=== PATIENT | female | born 1950 | race Caucasian/White ===

== ENCOUNTER 2025-01-22 11:43 | Emergency (ER) | payer MEDICARE, BC, SELFPAY ==
[2025-01-22 11:45] VITALS: BP 150/109
--- NOTE | 2025-01-22 12:55 | ED.GENMED ---
History of Present Illness
General
Chief Complaint: Swelling
Source: patient and significant other
Exam Limitations: none
Time Seen by Provider: 01/22/25 12:41
Nursing documentation reviewed up to this point in time: agreed with
History of Present Illness
History of Present Illness:
Note:
CHIEF COMPLAINT(S)
Facial and throat swelling, difficulty breathing, and hives after discontinuation of prednisone.
HISTORY OF PRESENT ILLNESS
The patient is a 74-year-old female with a history of rheumatoid arthritis, presenting to the emergency department with facial and throat swelling, difficulty breathing, and hives. These symptoms began after she discontinued prednisone, which she
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 The patient described the sensation as feeling like 'somebodys choking me.' The hives have persisted for about a week and were described as prickly heat. She
reported being on prednisone, last taking it a couple of days ago, and has been on methotrexate in the past, which was discontinued approximately six to seven weeks ago. The patient expressed fatigue and frustration with her current symptoms.
PHYSICAL EXAM
- General: No acute distress, afebrile
- Dermatological: Patchy hives observed on the trunk
- Ear, Nose, and Throat: No uvular swelling, no stridor
- Cardiovascular: Normal S1 and S2 heart sounds, no S3 or S4
- Pulmonary: Normal breath sounds bilaterally
- Abdominal: Soft, non-tender
PLAN
1. Place an intravenous line and obtain laboratory tests.
2. Administer intravenous Benadryl and Pepcid.
3. Monitor the patient�s response to the treatment.
4. Consider IV steroids depending on patients response to initial treatment and check lab results.
DIFFERENTIAL DIAGNOSIS
The Differential Diagnosis includes, in no particular order and is not limited to:
1. Anaphylaxis
2. Angioedema
3. Urticaria secondary to drug withdrawal (prednisone or methotrexate)
4. Allergic reaction to an unknown allergen
5. Viral exanthem
6. Contact dermatitis
7. Mastocytosis
8. Idiopathic urticaria
9. Autoimmune-related hypersensitivity
10. Medication side effect or allergy
CARE-UPDATE
01/22/25 - 19:49
Patient reports minimal change in symptoms. A discussion with the emergency department pharmacist suggests her symptoms might be related to imiprimine, which she has been taking long-term and is known to cause hives. Despite the potential
connection, the patient declines to discontinue imiprimine or take steroids, specifically prednisone, which previously resolved her symptoms. She is advised to stop imiprimine and to follow up with her primary care doctor but opts to leave without
changes to her current regimen.
Disposition:
SUMMARY OF ENCOUNTER
The patient, a 74-year-old female with a history of rheumatoid arthritis, was seen in the emergency department due to facial and throat swelling, difficulty breathing, and hives after discontinuing prednisone. These symptoms were thought to be
related to a medication reaction, potentially linked to imiprimine, which the patient had been taking long-term. Intravenous Benadryl and famotidine were administered for symptomatic relief. Despite the possibility of a reaction to imiprimine, the
patient declined to discontinue it and also refused to take steroids such as prednisone, despite its previous efficacy.
DISPOSITION
Discharge
ASSESSMENT
The patients symptoms suggest a likely allergic reaction, possibly related to recent medication changes. The continuation of symptoms may be influenced by the persistent use of amitriptyline and the discontinuation of prednisone.
EMERGENCY TREATMENTS ADMINISTERED
Intravenous diphenhydramine and famotidine.
PLAN
The patient was advised to discontinue imiprimine and to follow up with her primary care physician for further evaluation and management of her symptoms. Ongoing monitoring of her symptoms was recommended, particularly in relation to any other
medications she might be taking.
PATIENT EDUCATION AND COUNSELING
The patient was advised about the potential link between her symptoms and amitriptyline, and the importance of consulting with her primary care doctor about her current medication regimen. The possibility of prednisone being reintroduced to manage
the allergic reaction was discussed, but the patient declined.
FOLLOW-UP INSTRUCTIONS
The patient is advised to follow up with her primary care doctor to reassess her medication regimen and manage her symptoms effectively.
MEDICATION RECONCILIATION
1. Diphenhydramine (administered intravenously)
2. Famotidine (administered intravenously)
3. Imiprimine (patient declined to discontinue despite advice)
MEDICAL DECISION MAKING
- Complexity of Data Reviewed: Chronic conditions affecting care include rheumatoid arthritis. Differential diagnosis includes anaphylaxis, angioedema, urticaria secondary to drug withdrawal, allergic reaction to an unknown allergen, viral exanthem,
contact dermatitis, mastocytosis, idiopathic urticaria, autoimmune-related hypersensitivity, and medication side effect or allergy.
- Data:
Category 1
No specific labs or imaging tests were conducted during this visit.
Category 3
Discussion of management with the emergency department pharmacist regarding the potential link between the patients symptoms and amitriptyline.
- Risk: Prescription drug management was discussed. Despite potential medication reactions, the patient was discharged with outpatient management advice.
DIAGNOSIS
- Medication-induced urticaria (ICD-10: L50.0)
- Adverse effect of imiprimine (ICD-10: T43.015A)
Phy Exam
Physical Exam
Physical Exam:
.
Scores
Heart Failure Risk
Heart Failure Risk Score: Not Applicable
Course
Orders/Labs/Results
Orders:
Orders
01/22/25 11:44
EKG [Electrocardiogram (*1)] Urgent
Reason for Study: Chest Pain
EKG- Treatment ONCE
01/22/25 12:56
IV Insert/Care/Rem.- Treatment PRN
Diphenhydramine [Benadryl] 25 mg IV NOW STA
Famotidine [Pepcid] 20 mg IV NOW STA
01/22/25 14:05
Complete Blood Count/With Diff Urgent
Comprehensive Metabolic Panel Urgent
Cortisol, Random Urgent
Magnesium Urgent
Abnormal Lab Results
01/22/25
14:05
WBC 15.7 H 10^3/uL
(4.8-10.8)
MCHC 32.9 L g/dL
(33.0-37.0)
RDW 15.0 H %
(11.5-14.5)
Abs Immat Gran (auto) 0.2 H 10^3/uL
(0-0.05)
Absolute Neuts (auto) 9.8 H 10^3/uL
(1.4-6.5)
Absolute Eos (auto) 2.6 H 10^3/uL
(0-0.7)
Immature Gran % 1.5 H %
(0-0.5)
Lymphocytes % 17.1 L %
(20.5-51.1)
Eosinophils % 16.3 H %
(0-6)
Carbon Dioxide 31 H mmol/L
(22-30)
Glucose 129 H mg/dl
(70-99)
Total Protein 5.8 L g/dl
(6.3-8.2)
Albumin 3.4 L g/dl
(3.5-5.0)
01/22/25 14:05
01/22/25 14:05
Vital Signs
Initial and Last Documented VS:
Initial Vital Signs
Temp Pulse Resp BP Pulse Ox
98.4 F 121 17 150/109 91
01/22/25 11:45 01/22/25 11:45 01/22/25 11:45 01/22/25 11:45 01/22/25 11:45
Last Documented Vital Signs
Temp Pulse Resp BP Pulse Ox
98.4 F 119 23 127/77 94
01/22/25 11:45 01/22/25 17:15 01/22/25 17:15 01/22/25 16:00 01/22/25 16:45
*Pulse Oximetry
SaO2: 91
Oxygen Mode of Delivery: Room air
Patient hypoxic: no
*Critical Care Note
Total Time (30-74mins, 75-104mins- exclusive of procedures): Not Applicable
ED Attending Note
-
Portions of this chart may have been created with voice recognition software.� Occasional wrong word or��sound alike� substitutions may have occurred due to the inherent limitations of voice recognition software.
Discharge Plan
Departure
Patient Disposition: Home (Routine Discharge)
Date of Disposition: 01/22/25
Time of Disposition: 17:19
Patient with high blood pressure during this ER visit?: Yes
Condition: Good
Discharge Problem:
Urticaria
Instructions: Allergic reaction - ED discharge instructions, BLOOD PRESSURE
Referrals:
Gabby Jaime, DO [Family Provider, Family Practice] - Call in 1-3 days for appt
Activity Restrictions/Additional Instructions:
Stop taking imiprimine, it is likely causing your symptoms. Follow up with your primary care for a different anti depressant. Use benadryl and benadry cream.
Interventions
Interventions:
*Risk Screen - Suicide Last Done: 01/22/25 11:45
*General Assessment Last Done: 01/22/25 11:45
*Neglect/Abuse Screening Last Done: 01/22/25 11:45
*ED- Fall Risk Assessment Last Done: 01/22/25 17:30
*ED COVID-19 Vaccine History Last Done: 01/22/25 11:45
*Nursing Disposition Last Done: 01/22/25 17:30
ED- Cardiac Assessment Last Done: 01/22/25 14:12
ED- Pulmonary Assessment Last Done: 01/22/25 14:12
ED-Skin Assessment Last Done: 01/22/25 14:14
Discharge Date and Time
Discharge Date/Time: 01/22/25 17:40
Print Language: GUINEAN
[2025-01-22 13:52] VITALS: BP 144/93
[2025-01-22] MEDS: BENADRYL 25 MG IV (13:56)
[2025-01-22] MEDS: PEPCID 20 MG IV (13:56)
[2025-01-22 14:00] VITALS: BP 144/118
[2025-01-22 14:01] VITALS: BMI 26.6
[2025-01-22 14:11] VITALS: BP 146/80
[2025-01-22 14:16] LABS: Hematocrit 44.7 % (37.0-47.0); Hemoglobin 14.7 g/dL (12.0-16.0); Mean Corp Hgb Conc. 32.9 g/dL (33.0-37.0); Mean Corpuscular Volume 84.0 fL (81.0-99.0); Platelet Count 311 10^3/uL (130-400); Red Cell Dist. Width 15.0 % (11.5-14.5)
[2025-01-22 14:28] LABS: ALT (SGPT) 14 U/L (0-35); AST (SGOT) 17 U/L (14-36); Albumin 3.4 g/dl (3.5-5.0); Alkaline Phosphatase 91 U/L (38-126); Blood Urea Nitrogen 13 mg/dl (7-17); Calcium 9.1 mg/dl (8.4-10.2); Carbon Dioxide 31 mmol/L (22-30); Chloride 100 mmol/L (98-107); Estimated Creatinine Clearance 49 ml/min; Glucose 129 mg/dl (70-99); Magnesium 2.0 mg/dl (1.6-2.3); Potassium 4.0 mmol/L (3.5-5.1); Sodium 136 mmol/L (135-145); Total Protein 5.8 g/dl (6.3-8.2); eGFR > 60.00
[2025-01-22 14:57] LABS: Cortisol, Random 13.0 ug/dl
[2025-01-22 15:00] VITALS: BP 123/79
[2025-01-22 15:14] LABS: Nucleated Red Blood Cells % 0 %
[2025-01-22 16:00] VITALS: BP 127/77
== END 2025-01-22 17:40 | disposition home or self-care (01) ==
LOC: EMR 11:43
PROVIDERS: EMERGENCY PHYSICIAN Emergency Medicine; FAMILY PHYSICIAN Family Medicine
DX: R22.0 Localized swelling, mass and lump, head (principal); R06.00 Dyspnea, unspecified; R53.83 Other fatigue; L50.9 Urticaria, unspecified; R07.9 Chest pain, unspecified; T43.015A Adverse effect of tricyclic antidepressants, initial encounter; M06.9 Rheumatoid arthritis, unspecified; I10 Essential (primary) hypertension; K21.9 Gastro-esophageal reflux disease without esophagitis; E78.5 Hyperlipidemia, unspecified
CPT/HCPCS: 99284; 96374; 96375; 80053; 82533; 83735; 85025; 93005